=== PATIENT | female | born 1950 | race Caucasian/White ===

== ENCOUNTER 2022-09-22 10:45 | Inpatient (IN) | payer MEDICARE ==
[~2022-09-22] VITALS: Ht 162.6 cm; Wt 84.8 kg
[~2022-09-22 10:45] MED LIST: ASPI-1169 PO; CETI5TAB8 PO; LEVO75TA7 PO; LOSA1TAB42 PO; MELO-105 PO; MULT-594 PO; OMEP40CA PO
--- NOTE | 2022-09-22 10:53 | NUR ---
TO ER BED 7. BIBS C/O COUGH, CONGESTION, SORE THROAT, AND FEELING "FEVERISH" [id number]. WENT TO URGENT CARE LAST WEEK AND WAS TESTED NEGATIVE FOR COVID, FLU AND RSV. PT AFEBRILE. AWAITING MD ORDERS.
--- NOTE | 2022-09-22 11:48 | NUR ---
IV ESTABLISHED L FA 20G. LABS DRAWN AND COLLECTED AT BEDSIDE.
[2022-09-22 11:50] LABS: BASOPHILS % (AUTO) 0.2 % (0.0-2.0); EOSINOPHILS % (AUTO) 0.1 % (0.0-6.0); HEMATOCRIT 38 % (33-45); HEMOGLOBIN 12.4 g/dL (11.5-14.8); LYMPHOCYTES # (AUTO) 1.8 K/uL (0.8-4.8); LYMPHOCYTES % (AUTO) 11.1 % (20.0-44.0); MEAN CORPUSCULAR HGB CONC 32 g/dl (31.0-36.0); MEAN CORPUSCULAR VOLUME 83 fL (82-100); MONOCYTES # (AUTO) 1.6 K/uL (0.1-1.30); MONOCYTES % (AUTO) 9.8 % (2.0-12.0); NEUTROPHILS # (AUTO) 12.8 K/uL (1.8-8.9); NEUTROPHILS % (AUTO) 78.8 % (43.0-81.0); PLATELET COUNT (AUTO) 301 K/uL (150-450); RED BLOOD CELL COUNT(AUTO) 4.63 MIL/uL (4.0-5.2); WHITE BLOOD COUNT (AUTO) 16.2 K/uL (4.3-11.0)
[2022-09-22] MEDS ORDERED: ALBUTEROL FS 2.5 MG/0.5 ML VIAL.NEB NEB ONE (12:00)
[2022-09-22 12:12] LABS: CALCIUM, SERUM 8.8 mg/dL (8.5-10.1); CARBON DIOXIDE 21 mmol/L (21-32); CHLORIDE 98 mmol/L (98-107); CREATININE 1.1 mg/dL (0.6-1.3); GLUCOSE 158 mg/dL (74-106); POTASSIUM 4.1 mmol/L (3.5-5.1); SODIUM SERUM 131 mmol/L (136-145); UREA NITROGEN, BLOOD 17 mg/dL (7-18)
[2022-09-22] MEDS ORDERED: ALBUTEROL FS 2.5 MG/0.5 ML VIAL.NEB ONE (12:15)
--- NOTE | 2022-09-22 12:21 | NUR ---
COVID TEST COLLECTED AND SENT
[2022-09-22] MEDS ORDERED: DOXYCYCLINE HYCLATE (100 MG) 100 MG TABLET ONE (12:29)
[2022-09-22] MEDS ORDERED: DOXYCYCLINE HYCLATE (100 MG) 100 MG TABLET PO ONE (12:30)
[2022-09-22] MEDS ORDERED: CEFTRIAXONE 1 G in IV D5W 50 ML IV ONE (12:30)
[2022-09-22] MEDS ORDERED: AMLO-213 PO (12:33)
[2022-09-22] MEDS ORDERED: AZIT250T13 PO (12:33)
[2022-09-22] MEDS ORDERED: METO-357 PO (12:33)
[2022-09-22] MEDS ORDERED: CHOL400C8 PO (12:38)
[2022-09-22] MEDS ORDERED: CETI-90 PO (12:38)
[2022-09-22] MEDS ORDERED: IRBE300T19 PO (12:38)
--- NOTE | 2022-09-22 14:00 | NUR ---
PT ABLE TO AMBULATE TO THE RESTROOM ON HER OWN.
--- NOTE | 2022-09-22 14:50 | NUR ---
called nursing sup regarding pt bed
--- NOTE | 2022-09-22 15:30 | NUR ---
ROOM ASSIGNED. ADMITTING AWARE.
[2022-09-22 15:37] LABS: BAND % (MANUAL) 3 % (0.0-5.0); LYMPHOCYTES % (MANUAL) 13 % (16-48); MONOCYTES % (MANUAL) 6 % (0-11.0); NEUTROPHILS % (MANUAL) 78 (42-76)
--- NOTE | 2022-09-22 15:43 | NUR ---
REPORT GIVEN TO ALEC SANDERS
--- NOTE | 2022-09-22 16:25 | NUR ---
PT TRASNPORTED TO 3W WITH ACLS PROTOCOLS IN PLACE
[2022-09-22 16:30] VITALS: BP 131/67
[2022-09-22] MEDS ORDERED: MAGNESIUM HYDROXIDE 30 ML UDC PO PRN (16:30)
[2022-09-22] MEDS ORDERED: ONDANSETRON HCL/PF 4 MG/2 ML VIAL IVP PRN (16:30)
[2022-09-22] MEDS ORDERED: GUAIFENESIN/D-METHORPHAN HB 5 ML UDC PO PRN (16:30)
[2022-09-22] MEDS ORDERED: ACETAMINOPHEN 325 MG TABLET PO PRN (16:30)
[2022-09-22] MEDS ORDERED: Z GUARD REMEDY 4 OZ OINT TP PRN (16:30)
[2022-09-22] MEDS ORDERED: HYDROCODONE/APAP 5/325MG TABLET PO PRN (16:30)
--- NOTE | 2022-09-22 16:30 | NUR ---
FLOOR NURSE NOTES RECEIVED PATIENT ENDORSED BY MARILYN MERCADO VIA MONIE. PATIENT IS AWAKE AND A/O X4. ON O2 AT 3LPM VIA NASAL CANNULA TOLERATING WELL. NOT IN DISTRESS. WITH NO COMPLAINTS OF PAIN OR DISCOMFORT AT THIS TIME. ON TELE MONITOR CURRENTLY READING SINUS RHYTHM AT 94BPM. WITH IV ACCESS AT THE LEFT FOREARM G2O SALINE LOCKED, PATENT AND INTACT. SKIN ASSESSMENT DONE- INTACT. SAFETY MEASURES IN PLACED. CALL LIGHT WITHIN REACH. BED ON LOWEST LOCKED POSITION, SIDE RAILS UP X2. WILL CONTINUE TO MONITOR.
--- NOTE | 2022-09-22 17:28 | NUR ---
RT PATIENT ASSESSED FOR ABG DRAW. PATIENT AWAKE, ALERT, NO COMPLAINTS OF SOB ON 2L NC SPO2 96%. ABG PROCEDURE AND PURPOSE EXPLAINED TO PATIENT. PATIENT REFUSED ABG STATING SHE DOES NOT THINK SHE NEEDS IT. AND WOULD LIKE TO EAT DINNER INSTEAD.
[2022-09-22] MEDS: ENOXAPARIN SODIUM 40 MG/0.4 ML DISP.SYRIN SQ SCH (17:35)
[2022-09-22 17:50] VITALS: BP 152/80
[2022-09-22] MEDS: IV NS 0.9% 1,000 ML IV PRN (18:52)
--- NOTE | 2022-09-22 19:10 | NUR ---
ICT TEACHER CLOSING NOTES PATIENT IS AWAKE ON BED WATCHING TV AND A/O X4. ON O2 AT 3LPM VIA NASAL CANNULA TOLERATING WELL. NOT IN DISTRESS. WITH NO COMPLAINTS OF PAIN OR DISCOMFORT AT THIS TIME. ON TELE MONITOR CURRENTLY READING SINUS RHYTHM AT 92BPM. WITH IV ACCESS AT THE LEFT FOREARM G2O WITH IVF NS AT 75ML/HR INFUSING WELL. DUE MEDS GIVEN. SAFETY MEASURES IN PLACED. CALL LIGHT WITHIN REACH. BED ON LOWEST LOCKED POSITION, SIDE RAILS UP X2. WILL ENDORSE TO NEXT SHIFT NURSE FOR KAELYN.
[2022-09-22] MEDS ORDERED: ALBUTEROL FS 2.5 MG/3 ML VIAL.NEB NEB PRN (19:30)
[2022-09-22] MEDS ORDERED: IPRATROPIUM NEB FS 0.5 MG/2.5 ML AMPUL.NEB NEB PRN (19:30)
--- NOTE | 2022-09-22 19:39 | NUR ---
GROOVER RUNNER OPENING NOTE PATIENT AWAKE IN BED, ALERT/ORIENTED X 4, PT ABLE TO MAKE NEEDS KNOWN. PATIENT STABLE ON 3 LPM OF O2 VIA NASAL CANNULA, NO S/S OF DISTRESS OR SOB NOTED, BREATHING EVEN AND UNLABORED. PATIENT ON EXTERNAL TRAILER TRUCK DRIVER READING SINUS RHYTHM, HR: 85. IV ACCESS ON LFA #20G INTACT AND INFUSING NS @ 75 ML/HR. SAFETY MEASURES IN PLACE: CALL LIGHT WITHIN REACH, SIDE RAILS UP X 2, BED LOCKED IN LOWEST POSITION, HOB ELEVATED, BED ALARM ON. WILL CONTINUE TO MONITOR PATIENT
[2022-09-22 20:00] VITALS: BP 129/66
[2022-09-22] MEDS: GUAIFENESIN LA 600 MG TABLET.SA PO SCH (21:32)
[2022-09-22] MEDS: DOXYCYCLINE HYCLATE (100 MG) 100 MG TABLET PO SCH (21:32)
[2022-09-23 05:58] LABS: HEMATOCRIT 35 % (33-45); HEMOGLOBIN 11.5 g/dL (11.5-14.8); MEAN CORPUSCULAR VOLUME 83 fL (82-100); WHITE BLOOD COUNT (AUTO) 10.3 K/uL (4.3-11.0)
[2022-09-23 05:59] LABS: BASOPHILS % (AUTO) 0.3 % (0.0-2.0); EOSINOPHILS % (AUTO) 0.8 % (0.0-6.0); LYMPHOCYTES # (AUTO) 1.7 K/uL (0.8-4.8); LYMPHOCYTES % (AUTO) 16.8 % (20.0-44.0); MEAN CORPUSCULAR HGB CONC 33 g/dl (31.0-36.0); MONOCYTES # (AUTO) 0.8 K/uL (0.1-1.30); MONOCYTES % (AUTO) 7.7 % (2.0-12.0); NEUTROPHILS # (AUTO) 7.7 K/uL (1.8-8.9); NEUTROPHILS % (AUTO) 74.4 % (43.0-81.0); PLATELET COUNT (AUTO) 250 K/uL (150-450)
[2022-09-23 06:29] LABS: CALCIUM, SERUM 8.6 mg/dL (8.5-10.1); CARBON DIOXIDE 24 mmol/L (21-32); CHLORIDE 105 mmol/L (98-107); CREATININE 0.9 mg/dL (0.6-1.3); GLUCOSE 157 mg/dL (74-106); PHOSPHORUS 3.7 mg/dL (2.5-4.9); POTASSIUM 4.1 mmol/L (3.5-5.1); SODIUM SERUM 138 mmol/L (136-145); UREA NITROGEN, BLOOD 14 mg/dL (7-18)
--- NOTE | 2022-09-23 06:56 | NUR ---
MS RN CLOSING NOTE PATIENT SLEEPING IN BED, ALERT/ORIENTED X 4, PT ABLE TO MAKE NEEDS KNOWN. PATIENT STABLE ON 3 LPM OF O2 VIA NASAL CANNULA, NO S/S OF DISTRESS OR SOB NOTED, BREATHING EVEN AND UNLABORED. IV ACCESS ON LFA #20G INTACT AND INFUSING NS @ 75 ML/HR. SO SIGNIFICANT CHANGES THIS SHIFT, PATIENT SLEPT WELL THROUGHOUT THE NIGHT, MEDICATIONS GIVEN ORDERED. SAFETY MEASURES IN PLACE: CALL LIGHT WITHIN REACH, SIDE RAILS UP X 2, BED LOCKED IN LOWEST POSITION, HOB ELEVATED, BED ALARM ON. WILL ENDORSE TO DAYSHIFT RN FOR CONTINUITY OF CARE
--- NOTE | 2022-09-23 07:28 | NUR ---
MS RN NOTES PATIENT IN BED ALERT ORIENTED X 4. NO ACUTE DISTRESS NOTED, BREATHING UNLABORED. DENIED PAIN AT THIS TIME, NO FACIAL GRIMACING NOTED. ON O2 AT 3LPM VIA NASAL CANNULA SATURATING AT 98%. IV ACCESS PATENT AND INTACT, NO REDNESS, NO SWELLING NOTED. SAFETY MEASURES IN PLACE, CALL LIGHT WITHIN REACH, WILL CONTINUE TO MONITOR ACCORDINGLY.
[2022-09-23] MEDS: PANTOPRAZOLE 40 MG TABLET.DR PO SCH (07:43)
[2022-09-23 08:00] VITALS: BP 152/79
[2022-09-23] MEDS: LOSARTAN POTASSIUM 50 MG TABLET PO SCH (08:15)
[2022-09-23] MEDS: LEVOTHYROXINE SODIUM 75 MCG TABLET PO SCH (08:15)
[2022-09-23] MEDS: GUAIFENESIN LA 600 MG TABLET.SA PO SCH ×2 (08:15→20:42)
[2022-09-23] MEDS: MULTIVITAMINS,THERAGRAN 1 UDTAB TABLET PO SCH (08:15)
[2022-09-23] MEDS: DOXYCYCLINE HYCLATE (100 MG) 100 MG TABLET PO SCH ×2 (08:16→20:43)
[2022-09-23] MEDS: cetrizine 10 MG TABLET PO SCH (08:16)
[2022-09-23] MEDS: CHOLECALCIFEROL 1,000 UNIT TABLET (VIT D3) PO SCH (08:16)
[2022-09-23] MEDS ORDERED: MORPHINE SULFATE INJ 2 MG/ML DISP.SYRIN IV ONE (10:30)
[2022-09-23] MEDS: IPRATROPIUM NEB FS 0.5 MG/2.5 ML AMPUL.NEB NEB SCH ×3 (12:30→21:34)
[2022-09-23] MEDS: ALBUTEROL FS 2.5 MG/3 ML VIAL.NEB NEB SCH ×3 (12:30→21:34)
[2022-09-23] MEDS: methylPREDNISolone SOD SUCC 125 MG/2ML VIAL IV SCH ×2 (12:37→20:43)
[2022-09-23] MEDS: CEFTRIAXONE 1 G in IV D5W 50 ML IV SCH (12:39)
[2022-09-23] MEDS: IV NS 0.9% 1,000 ML IV PRN (12:48)
[2022-09-23 16:00] VITALS: BP 136/74
[2022-09-23] MEDS: ENOXAPARIN SODIUM 40 MG/0.4 ML DISP.SYRIN SQ SCH (17:45)
--- NOTE | 2022-09-23 18:58 | NUR ---
MS RN NOTES PATIENT IN BED ALERT ORIENTED X 4. NO ACUTE DISTRESS NOTED, BREATHING UNLABORED. DENIED PAIN AT THIS TIME, NO FACIAL GRIMACING NOTED. ON O2 AT 3LPM VIA NASAL CANNULA SATURATING AT 99%. IV ACCESS PATENT AND INTACT, NO REDNESS, NO SWELLING NOTED. NEEDS ATTENDED AND ANTICIPATED. SAFETY MEASURES IN PLACE, CALL LIGHT WITHIN REACH, WILL ENDORSE TO NIGHT NURSE FOR CONTINUITY OF CARE.
[2022-09-23 20:00] VITALS: BP 128/70
--- NOTE | 2022-09-23 20:01 | NUR ---
MS RN OPENING NOTE PATIENT AWAKE IN BED, ALERT/ORIENTED X 4, PT ABLE TO MAKE NEEDS KNOWN. PATIENT STABLE ON 3 LPM OF O2 VIA NASAL CANNULA, NO S/S OF DISTRESS OR SOB NOTED, BREATHING EVEN AND UNLABORED. IV ACCESS ON LFA #20G INTACT WITH BRUISING AROUND BUT STILL FLUSHING WELL AND NO DISCOMFORT NOTED BY PATIENT. PATIENT REQUESTING TO BE DISCONNECTED FROM IV FLUIDS AT THIS TIME, PATIENT DRINKING PLENTY OF FLUIDS. SAFETY MEASURES IN PLACE: CALL LIGHT WITHIN REACH, SIDE RAILS UP X 2, BED LOCKED IN LOWEST POSITION, HOB ELEVATED, BED ALARM ON. WILL CONTINUE TO MONITOR PATIENT
[2022-09-24] MEDS: IPRATROPIUM NEB FS 0.5 MG/2.5 ML AMPUL.NEB NEB SCH ×3 (02:11→14:01)
[2022-09-24] MEDS: ALBUTEROL FS 2.5 MG/3 ML VIAL.NEB NEB SCH ×3 (02:11→14:02)
[2022-09-24 05:46] LABS: BASOPHILS % (AUTO) 0.1 % (0.0-2.0); HEMATOCRIT 34 % (33-45); HEMOGLOBIN 10.9 g/dL (11.5-14.8); LYMPHOCYTES % (AUTO) 8.6 % (20.0-44.0); MEAN CORPUSCULAR HGB CONC 32 g/dl (31.0-36.0); MEAN CORPUSCULAR VOLUME 83 fL (82-100); MONOCYTES # (AUTO) 0.3 K/uL (0.1-1.30); MONOCYTES % (AUTO) 2.7 % (2.0-12.0); NEUTROPHILS % (AUTO) 88.6 % (43.0-81.0); PLATELET COUNT (AUTO) 300 K/uL (150-450); RED BLOOD CELL COUNT(AUTO) 4.09 MIL/uL (4.0-5.2); WHITE BLOOD COUNT (AUTO) 11.3 K/uL (4.3-11.0)
[2022-09-24 06:04] LABS: CALCIUM, SERUM 9.1 mg/dL (8.5-10.1); MAGNESIUM 2.2 mg/dL (1.8-2.4); PHOSPHORUS 3.8 mg/dL (2.5-4.9)
[2022-09-24] MEDS: methylPREDNISolone SOD SUCC 125 MG/2ML VIAL IV SCH ×2 (06:14→13:09)
--- NOTE | 2022-09-24 07:05 | NUR ---
MS RN OPENING NOTE PATIENT AWAKE IN BED, A/O X 4, PT ABLE TO MAKE NEEDS KNOWN. PATIENT STABLE ON 3 LPM OF O2 VIA NASAL CANNULA, NO S/S OF DISTRESS OR SOB NOTED, BREATHING EVEN AND UNLABORED. IV ACCESS ON LFA #20G INTACT WITH BRUISING AROUND BUT FLUSHING WELL AND NO DISCOMFORT VERIFIED BY PATIENT. SAFETY MEASURES IN PLACE: CALL LIGHT WITHIN REACH, SIDE RAILS UP X 2, BED LOCKED IN LOWEST POSITION, HOB ELEVATED, BED ALARM ON. WILL CONTINUE TO MONITOR PATIENT
--- NOTE | 2022-09-24 07:29 | NUR ---
MS RN CLOSING NOTE PATIENT SLEEPING IN BED, ALERT/ORIENTED X 4, PT ABLE TO MAKE NEEDS KNOWN. PATIENT STABLE ON 3 LPM OF O2 VIA NASAL CANNULA, NO S/S OF DISTRESS OR SOB NOTED, BREATHING EVEN AND UNLABORED. IV ACCESS ON LFA #20G INTACT AND SALINE LOCKED, PT REQUESTED TO BE OFF IVF, DRINKING PLENTY OF FLUIDS. NO SIGNIFICANT CHANGES THIS SHIFT, PATIENT SLEPT WELL THROUGHOUT THE NIGHT, MEDICATIONS GIVEN ORDERED. SAFETY MEASURES IN PLACE: CALL LIGHT WITHIN REACH, SIDE RAILS UP X 2, BED LOCKED IN LOWEST POSITION, HOB ELEVATED, BED ALARM ON. ENDORSED TO DAYSHIFT RN FOR CONTINUITY OF CARE
[2022-09-24] MEDS: PANTOPRAZOLE 40 MG TABLET.DR PO SCH (07:39)
[2022-09-24 08:00] VITALS: BP 145/93
[2022-09-24] MEDS: MULTIVITAMINS,THERAGRAN 1 UDTAB TABLET PO SCH (09:51)
[2022-09-24] MEDS: LEVOTHYROXINE SODIUM 75 MCG TABLET PO SCH (09:51)
[2022-09-24] MEDS: GUAIFENESIN LA 600 MG TABLET.SA PO SCH (09:51)
[2022-09-24] MEDS: cetrizine 10 MG TABLET PO SCH (09:51)
[2022-09-24] MEDS: CHOLECALCIFEROL 1,000 UNIT TABLET (VIT D3) PO SCH (09:52)
[2022-09-24] MEDS: DOXYCYCLINE HYCLATE (100 MG) 100 MG TABLET PO SCH (09:52)
[2022-09-24] MEDS: LOSARTAN POTASSIUM 50 MG TABLET PO SCH (09:53)
[2022-09-24] MEDS ORDERED: INSULIN REGULAR, HUMAN 100 UNIT/ML 3 ML VIAL SQ PRN (10:00)
[2022-09-24] MEDS ORDERED: DEXTROSE 50%-WATER 50 ML DISP.SYRIN IV PRN (10:00)
[2022-09-24] MEDS ORDERED: BLOOD SUGAR DIAGNOSTIC 1 EACH STRIP IN SCH (12:00)
[2022-09-24] MEDS: CEFTRIAXONE 1 G in IV D5W 50 ML IV SCH (13:11)
[2022-09-24] MEDS ORDERED: ALBU18HF2 INH (13:25)
[2022-09-24] MEDS ORDERED: AMOX-430 PO (13:25)
[2022-09-24] MEDS ORDERED: DOXY-326 PO (13:25)
[2022-09-24] MEDS ORDERED: ONDA4TAB11 PO (13:25)
[2022-09-24] MEDS ORDERED: METH4TAB3 PO (13:25)
[2022-09-24] MEDS ORDERED: GUAI1TBM19 PO (13:25)
[2022-09-24] MEDS ORDERED: FLUT1BLS IH (13:25)
[2022-09-24 16:00] VITALS: BP 139/75
--- NOTE | 2022-09-24 19:15 | NUR ---
MS [employer] ARCHITECT NOTE PATIENT DISCHARGED TO HOME IN STABLE CONDITION, ALERT/ORIENTED X 4, PT ABLE TO MAKE NEEDS KNOWN. PATIENT WILL CONTINUE O2 VIA NASAL CANNULA 2L, OXYGEN EQUIPMENT ORDERED AND RECEIVED, NO S/S OF DISTRESS OR SOB NOTED, BREATHING EVEN AND UNLABORED UPON DISCHARGE. IV ACCESS REMOVED WITH MILD BRUISING NOTED EARLIER, ADVISED PATIENT TO APPLY WARM COMPRESS AT HOME. ALL BELONGINGS ACCOUNTED FOR. PATIENT LEFT WITH A FRIEND. CHARGE NURSE AWARE OF THE DISCHARGE.
== END 2022-09-24 16:55 | disposition home or self-care (01) | DRG 871 ==
LOC: ER 10:55 → TELE 16:00 → MED 21:24
PROVIDERS: ADMIT Nurse Practitioner Family; ATTEND Nurse Practitioner Family
DX: A41.9 Sepsis, unspecified organism (principal); J15.9 Unspecified bacterial pneumonia; J96.01 Acute respiratory failure with hypoxia; E87.1 Hypo-osmolality and hyponatremia; Z20.822 Contact with and (suspected) exposure to COVID-19; I10 Essential (primary) hypertension; E78.00 Pure hypercholesterolemia, unspecified; K21.9 Gastro-esophageal reflux disease without esophagitis; Z85.038 Personal history of other malignant neoplasm of large intestine; M17.11 Unilateral primary osteoarthritis, right knee; Z90.49 Acquired absence of other specified parts of digestive tract; Z98.890 Other specified postprocedural states; Z88.2 Allergy status to sulfonamides; Z91.018 Allergy to other foods; Z79.82 Long term (current) use of aspirin; Z79.899 Other long term (current) drug therapy; Z87.891 Personal history of nicotine dependence; Z86.73 Personal history of transient ischemic attack (TIA), and cerebral infarction without residual deficits; Z83.3 Family history of diabetes mellitus; E11.65 Type 2 diabetes mellitus with hyperglycemia; E03.9 Hypothyroidism, unspecified; T38.0X5A Adverse effect of glucocorticoids and synthetic analogues, initial encounter; Y92.239 Unspecified place in hospital as the place of occurrence of the external cause; J32.9 Chronic sinusitis, unspecified; J20.9 Acute bronchitis, unspecified
CPT/HCPCS: 36415; 71045-TC; 80048-TC; 82962-TC; 83605-TC; 83735-TC; 83880; 84100-TC; 84484-TC; 85025-TC; 87040-TC; 87081-TC; 94799-TC; C9803; G0378; J0696; J1650; J1815; J2930; J7030; J7060